=== PATIENT | female | born 1960 | race Caucasian/White ===

== ENCOUNTER → 2017-01-04 | Outpatient (CLI) | payer OTHER ==
[~2017-01-04] MED LIST: ALBUTEROL17 GM INH; ALEVE220 M1 PO; AMLODIPINE BESYL5 MG PO; ANASTROZOLE1 MG PO; EMERGE PO; KLOR-CON PO; LASIX PO; LISINOPRIL20 MG PO; LORTAB 7.5-5001 TAB PO; METHADONE PO; METHADOSE PO; NARATRIPTAN2.5 MG PO; NASONEX17 GM; PERCOCET 10/3251 TAB PO; PERCOCET 7.5/321 TAB PO; PHENERGAN25 MG PO; PROPRANOLOL HCL40 MG PO; ZANAFLEX2 M2 PO
--- NOTE | ~2017-01-04 | MY6 ---
[facility] A Service of [facility] RADIOLOGY TEXT RESULTS PATIENT: FARHAN ALBRIGHT LOCATION: [facility] : 56 UNIT #: [id number] AGE: [address]: Kevon Wooten MD SEX: F ORDER DR: [id number] [facility] [address] [place], [place] [address] [id number] O MR#: [id number] Acc #: [id number] NAME: FARHAN ALBRIGHT : 1960 SEX: F STUDY DATE/TIME: 01/04/2017 15:25 UNIT: [facility] ROOM: STUDY DESCRIPTION: MY Mammogram Dx Dig Padilla Attending Physician: Kevon Wooten M.D. Referring Physician: Kevon Wooten M.D. Ordering Physician: Kevon Wooten M.D. Primary Care Physician: Blas Galindo M.D. MEDICAL IMAGING REPORT This report is preliminary unless electronic signature is present EXAM Bilateral digital diagnostic mammogram INDICATIONS History of left breast cancer. Followup. PROCEDURTECHNIQUE Bilateral CC and MLO views left true lateral view obtained on a digital mammography. FDA-approved CAD device utilized. COMPARISON 12/01/2015. FINDINGS Scattered fibroglandular density. There is no dominant mass. No suspicious calcification. Stable postsurgical change in the left breast. IMPRESSION Benign bilateral mammogram. Recommend patient continue with yearly screening and/or followup. BIRADS: 2 Benign Finding. Patients over the age of 40 are entered into a reminder system with target due date for the next mammogram. A result letter will also be sent to the patient. Dictated by... Govind Jolly M.D. THIS IS AN ELECTRONICALLY VERIFIED REPORT [facility] A Service of [facility] & [facility] RADIOLOGY TEXT RESULTS PATIENT: FARHAN ALBRIGHT LOCATION: [facility] : 56 UNIT #: [id number] AGE: [address]: Kevon Wooten MD SEX: F ORDER DR: Govind Jolly M.D. at 01/07/2017 10:00 PM EED/pcl TD: 01/04/2017 20:00 JOB #: [id number] MEDICAL IMAGING REPORT Page 1 of 1 COPY
== END | disposition home or self-care (01) ==
LOC: CMAM 01-02 15:00
DX: Z08 Encounter for follow-up examination after completed treatment for malignant neoplasm (principal); Z85.3 Personal history of malignant neoplasm of breast
CPT/HCPCS: G0204

== ENCOUNTER → 2017-04-18 | Outpatient (CLI) | payer OTHER ==
--- NOTE | ~2017-04-18 | CT2 ---
[facility] A Service of [facility] & [facility] RADIOLOGY TEXT RESULTS PATIENT: FARHAN ALBRIGHT [facility] : 56 UNIT #: [id number] AGE: [address]: Kevon Wooten MD SEX: F ORDER DR: [id number] [facility] [address] [place], [place] [address] [id number] O MR#: [id number] Acc #: [id number] NAME: FARHAN ALBRIGHT : 1960 SEX: F STUDY DATE/TIME: 04/18/2017 17:22 UNIT: [facility] ROOM: STUDY DESCRIPTION: CT Abd and Pelv W Cont Attending Physician: Kevon Wooten M.D. Referring Physician: Kevon Wooten M.D. Ordering Physician: Kevon Wooten M.D. Primary Care Physician: Blas Medina MEDICAL IMAGING REPORT This report is preliminary unless electronic signature is present EXAM CT abdomen and pelvis with contrast HISTORY 57-year-old female diagnosed with breast cancer in 2013. Patient presents for surveillance for metastatic disease. Currently asymptomatic. COMPARISON CT abdomen and pelvis 08/17/[address] exam was performed with one or more of the following radiation dose reduction techniques: automatic exposure control, adjustment of mA and/or kV according to patient size, and iterative reconstruction. FINDINGS Axial images form through the abdomen and pelvis following IV contrast. Multiplanar reconstructed images were reviewed. ABDOMEN: Lung bases suggest mild emphysema. Liver suggests fatty infiltration. Patient is post cholecystectomy. Two subtle lesions are seen in the lateral aspect of the right hepatic lobe. One appears to represent a cyst. The second appears at least partially calcified and may represent a granuloma. These do not appear significantly changed from the August study. The spleen, pancreas, kidneys and adrenal glands are unremarkable except for very small left and right renal cortical cysts. Visualized GI tract unremarkable. Retroperitoneum unremarkable. PELVIS: The bladder, uterus and adnexa appear normal. Osseous structures remarkable for moderately advanced bilateral L4-5, L5-S1 facet arthropathy. Soft tissues unremarkable. IMPRESSION [facility] A Service of [facility] & [facility] RADIOLOGY TEXT RESULTS PATIENT: FARHAN ALBRIGHT LOCATION: [facility] : 56 UNIT #: [id number] AGE: [address]: Kevon Wooten MD SEX: F ORDER DR: 1. No CT findings to suggest metastatic disease to the abdomen and pelvis. 2. Stable right hepatic lesions and bilateral renal cortical cysts. 3. Moderately advanced bilateral L4-5, L5-S1 facet arthropathy. Dictated by... Hailey Estrada M.D. THIS IS AN ELECTRONICALLY VERIFIED REPORT Hailey Estrada M.D. at 04/20/2017 7:56 AM JORGE/chuck TD: 04/20/2017 02:15 JOB #: [id number] MEDICAL IMAGING REPORT Page 1 of 1 COPY
[2017-04-18 18:06] LABS: POC - CREATININE 0.98 mg/dL (0.44-1.03); POC - GFR >60.0 mL/min (>60)
== END | disposition home or self-care (01) ==
LOC: CCAT 16:28
PROVIDERS: Internal Medicine Hematology
DX: C50.919 Malignant neoplasm of unspecified site of unspecified female breast (principal); K76.9 Liver disease, unspecified; M46.96 Unspecified inflammatory spondylopathy, lumbar region
CPT/HCPCS: 74177; 82565; Q9967